=== PATIENT | male | born 1970 | race Caucasian/White ===

== ENCOUNTER 2021-05-06 04:54 | Inpatient (IN) | payer OTHER, SELFPAY ==
[2021-05-06 04:54] VITALS: BP 143/97; PULSE 98; RESP 16; TEMP 37.1; O2SAT 96; BMI 25.8
--- NOTE | 2021-05-06 05:50 | EKG12_ITS ---
Test Reason : DETOX Blood Pressure : / mmHG Vent. Rate : 074 BPM Atrial Rate : 074 BPM P-R Int : 176 ms QRS Dur : 086 ms QT Int : 380 ms P-R-T Axes : 053 -05 -11 degrees QTc Int : 421 ms Normal sinus rhythm Normal ECG Confirmed by RENAE VITALE, ITALIA ([id number]), editor publications SONIA GREY ([id number]) on 05/10/2021 9:50:05 AM Referred By: KONRAD Confirmed By:DICK MACDONALD MD
[2021-05-06] MEDS: 0.9% Normal Saline 1,000 ML 999 ML IV (06:08)
[2021-05-06] MEDS: Ondansetron 4 MG/2 ML Vial IV (06:08)
[2021-05-06 06:21] LABS: Absolute Lymphocyte Count 1.63 X10^3/uL (0.83-4.51); Absolute Neutrophil Count 2.3 X10^3/uL (2.0-7.7); Basophil# 0.03 X10^3/uL; Basophil% 0.6 % (0-1); Eosinophil# 0.24 X10^3/uL; Eosinophils% 4.9 % (0-5); Hematocrit 47.2 % (40-54); Hemoglobin 16.3 g/dL (13.0-16.5); Lymphocyte # 1.63 X10^3/ul (0.83-4.51); Lymphocyte % 33.5 % (19-41); Mean Corp Hgb Conc 34.5 g/dL (32-36); Mean Corpuscular Volume 95.5 fL (80-94); Mean Platelet Vol. 10.4 fl (6.2-12.0); Monocyte% 12.3 % (0-10); NRBC Flagged by Analyzer 0 % (0-5); Neutrophil # 2.34 X10^3/uL (2.7-7.7); Neutrophil % 48.3 % (47-70); Platelet Count 217 K/mm3 (150-450); RBC Distribution Width CV 13.3 % (11.6-14.6); RBC Distribution Width SD 47.5 fl (35.1-43.9); Red Blood Count 4.94 M/mm3 (4.6-6.2); White Blood Count 4.9 K/mm3 (4.4-11.0)
[2021-05-06 06:35] LABS: AST(SGOT) 66 U/L (15-37); Alanine Aminotransfer ALT/SGPT 76 U/L (16-61); Albumin, Serum 3.9 g/dL (3.2-5.0); Alkaline Phosphatase 85 U/L (45-117); Anion Gap 8 (5-15); BUN 13 mg/dL (7-18); BUN/Creat Ratio 14.9 RATIO (10-20); Bilirubin, Direct 0.12 mg/dL (0.00-0.30); Calcium,Total 9.1 mg/dL (8.5-10.1); Chloride 103 mmol/L (98-107); Creatinine, Serum 0.87 mg/dL (0.70-1.30); EST Glomerular Filtration Rate 97 mL/min (>60); Est Glom Filt Rate - Afr Amer 118 mL/min (>60); Estimated Creatinine Clearance 96.09 ml/min; Globulin 4.4 g/dL (2.2-4.2); Glucose 101 mg/dL (74-106); Magnesium 2.2 mg/dL (1.6-2.6); Protein, Total 8.3 g/dL (6.4-8.2); Sodium Level 140 mmol/L (136-145)
[2021-05-06 07:41] VITALS: BP 120/96; PULSE 75; O2SAT 95
--- NOTE | 2021-05-06 07:47 | EDS_ITS ---
HPI History of Present Illness Chief Complaint: Substance Abuse Narrative Narrative: Patient is a 50-year-old male who presents with concern for alcohol detox. He states that he drinks daily and has done so for 20 to 30 years. He states he did go through detox program approximately 20 years ago when he was 28 years old and was sober for about 1 year. He states otherwise he wakes up and has Jorge?a and his coffee. He states he can make it through about 8 hours or work but he returns to his car and has a bottle where he drinks liquor. He states he then returns home and does more shots and drinks more from a bottle and he states he does this typically 7 days a week and can be more severe on the weekends as he does not have to go to work. He states he is not recognizing that he is drinking too much and this is a problem and therefore comes to the hospital for evaluation with hopes of getting into the alcohol detox program [facility] Medical History Alcohol abuse Home Medications NK 05/06/21 [History Last Taken Unknown] Allergy/AdvReac Type Severity Reaction Status Date / Time No Known Allergies Allergy Verified 05/06/21 04:56 Social History Smoking Status: Current every day smoker tobacco type: cigarettes ROS ROS ED Constitutional Constitutional ED: Denies chills or fever(s) ENT ENT ED: Denies sore throat Cardiovascular Cardiovascular: Denies chest pain Respiratory/Chest Respiratory/Chest: Denies cough or dyspnea Gastrointestinal Gastrointestinal: Reports nausea and vomiting; Denies abdominal pain or diarrhea Genitourinary Genitourinary ED: Denies dysuria Musculoskeletal Musculoskeletal: Denies myalgias Integumentary Denies rash Neurologic Neurologic: Denies headache(s) Psychiatric Psychiatric: Denies suicidal ideation or suicidal thoughts Hematologic/Lymphatic Hematologic/Lymphatic: Denies easy bleeding or easy bruising EXAM Physical Exam Const Vital Signs: 05/06/21 04:54 05/06/21 07:41 Temperature 98.7 F Temperature Source Oral Pulse Rate 98 75 Respiratory Rate 16 Blood Pressure 143/97 H 120/96 H Blood Pressure Mean 112 104 Pulse Ox 96 95 Oxygen Delivery Method Room Air Room Air Positive well nourished and well developed General Appearance ED: well developed HEENT Reports dry mucous membranes Mouth ED: Yes dry mucous membranes Mouth: dry mucous membranes Eyes PERRL and EOMs intact bilaterally General Eye ED: Negative for scleral icterus Neck supple Resp normal respiratory effort and clear to auscultation bilaterally Cardio regular rate and regular rhythm GI normal to inspection, nondistended, normoactive bowel sounds, non-tender, non- distended and no masses Auscultation: normoactive bowel sounds Palpation: soft Extremity normal to inspection Neuro oriented x3 and CN's II-XII intact bilaterally Sensorium / Orientation: alert Motor Exam: strength 5/5 throughout Psych mental status grossly normal Skin no rashes or lesions noted General Skin Exam: Negative for jaundice MDM MDM MDM Narrative Medical decision making narrative: Patient presented to the ER stable vitals and in no acute distress. He did report he was drinking this morning and therefore elected to check values and not start with treatment such as Ativan or phenobarbital. His alcohol level is elevated at 185 consistent with his history. He has no signs of alcoholic encephalopathy or obvious cirrhosis at th is time. However based on the amount he drinks he is high risk for going through delirium tremens through his withdrawal stage and therefore will be admitted to the hospital to safely transition off of alcohol Lab Data Attestation: I reviewed the patient's lab results. Labs: Laboratory Results - last 24 hr 05/06/21 05/06/21 05/06/21 06:10 06:10 06:10 WBC 4.9 RBC 4.94 Hgb 16.3 Hct 47.2 MCV 95.5 H MCH 33.0 H MCHC 34.5 RDW Std Deviation 47.5 H RDW Coeff of Bashir 13.3 Plt Count 217 MPV 10.4 Immature Gran % (Auto) 0.400 Neut % (Auto) 48.3 Lymph % (Auto) 33.5 [place] % (Auto) 12.3 H Eos % (Auto) 4.9 Baso % (Auto) 0.6 Absolute Neuts (auto) 2.3 Absolute Lymphs (auto) 1.63 Nucleated RBC % 0 Sodium 140 Potassium 4.0 Chloride 103 Carbon Dioxide 29.0 Anion Gap 8 BUN 13 Creatinine 0.87 Estim Creat Clear Calc 96.09 Est GFR (MDRD) Af Amer 118 Est GFR (MDRD) Non-Af 97 BUN/Creatinine Ratio 14.9 Glucose 101 Calcium 9.1 Magnesium 2.2 Total Bilirubin 0.20 Direct Bilirubin 0.12 AST 66 H ALT 76 H Alkaline Phosphatase 85 Total Protein 8.3 H Albumin 3.9 Globulin 4.4 H Ethyl Alcohol 185.0 Discharge Plan Triage Chief Complaint: Substance Abuse Other Complaint: ETOH Intox ED Provider: Kodak Bray Dx/Rx/DC Orders Clinical Impression: Alcohol abuse Prescriptions: No Action NK RF: 0 Primary Care Provider: Care Physician,No Primary Referrals: Care Physician,No Primary [Primary Care Provider] - Disposition Disposition: Acute Care [facility]
--- NOTE | 2021-05-06 07:56 | PCM.HP.STD ---
HPI - General General Date of Admission: 05/06/21 Date of Service: 05/06/21 Chief Complaint: alcohol withdrawal HPI Narrative MILLIE KELLY, is a 50 M who presents seeking treatment for alcohol withdrawal. Patient drinks daily. Drinks around 5-10 shots per day during the week bottle of bourbon over the weekend. He is able to go to work for 8 hours but feels stressed time. Patient presents voluntarily seeking treatment for alcohol withdrawal. Patient's last drink was this morning. Is currently having no symptoms but states that typically in the mornings he has some jitteriness that is resolved after his first drink. [facility] Medical History Alcohol abuse Alcohol abuse Home Medications NK 05/06/21 [History Last Taken Unknown] Allergy/AdvReac Type Severity Reaction Status Date / Time No Known Allergies Allergy Verified 05/06/21 04:56 Social History (Updated 05/06/21 @ 07:[address] Jose Bansal, DO) Smoking Status: Current every day smoker tobacco type: cigarettes alcohol intake: current alcohol intake frequency: 3 or more drinks per day Alcohol type: hard liquor substance use type: does not use ROS ROS Narrative All review of systems were negative except as mentioned above in the history of present illness and the other review of systems. Vital Signs Vital Signs Vital Signs: 05/06/21 04:54 05/06/21 07:41 Temperature 37.1 C Temperature Source Oral Pulse Rate 98 75 Respiratory Rate 16 Blood Pressure 143/97 H 120/96 H Blood Pressure Mean 112 104 Pulse Ox 96 95 Oxygen Delivery Method Room Air Room Air Weight Weight: 77.111 kg Body Mass Index (BMI) 25.8 Physical Exam Const alert, no apparent distress and average body habitus General Appearance: cooperative HEENT normocephalic, head/scalp atraumatic, hearing grossly normal bilaterally and moist oral mucous membranes Eyes PERRL Resp normal respiratory effort, no retractions, no use of accessory muscles and clear to auscultation bilaterally Cardio regular rate, regular rhythm, S1 normal heart sound and S2 normal heart sound GI normal to inspection, nondistended, normoactive bowel sounds, non-tender, non-distended and hepatosplenomegaly Extremity normal to inspection Skin no rashes or lesions noted Results Lab / Micro Data Attestation: I reviewed the patient's lab results. Result Diagrams: 05/06/21 06:10 05/06/21 06:10 Labs: Laboratory Results - last 24 hr 05/06/21 06:10: WBC 4.9, RBC 4.94, Hgb 16.3, Hct 47.2, MCV 95.5 H, MCH 33.0 H, MCHC 34.5, RDW Std Deviation 47.5 H, RDW Coeff of Bashir 13.3, Plt Count 217, MPV 10.4, Immature Gran % (Auto) 0.400, Neut % (Auto) 48.3, Lymph % (Auto) 33.5, [place] % (Auto) 12.3 H, Eos % (Auto) 4.9, Baso % (Auto) 0.6, Absolute Neuts (auto) 2.3, Absolute Lymphs (auto) 1.63, Nucleated RBC % 0 05/06/21 06:10: Sodium 140, Potassium 4.0, Chloride 103, Carbon Dioxide 29.0, Anion Gap 8, BUN 13, Creatinine 0.87, Estim Creat Clear Calc 96.09, Est GFR (MDRD) Af Amer 118, Est GFR (MDRD) Non-Af 97, BUN/Creatinine Ratio 14.9, Glucose 101, Calcium 9.1, Magnesium 2.2, Total Bilirubin 0.20, Direct Bilirubin 0.12, AST 66 H, ALT 76 H, Alkaline Phosphatase 85, Total Protein 8.3 H, Albumin 3.9, Globulin 4.4 H 05/06/21 06:10: Ethyl Alcohol 185.0 Assessment & Plan Assessment/Plan (1) Alcohol abuse: PLAN: 1. Acute alcohol withdrawal Last drink was this morning Discussed with patient that he barbital taper. Additionally patient will be on thiamine folate. I do not feel the patient is going to progress to the point of delirium tremens and I think his course would be rather uncomplicated and possibly may be shortened. Would anticipate probably around 2days. Did inform him that he would be seeing addiction medicine to facilitate some programs for him. States that he does have some connections prior to this but told him to talk with them to see what ultimately would be ideal choice for him moving forward. 2. Tobacco abuse Smokes a pack a day Nicotine patch 3. VTE prophylaxis: Not indicated risk. 4. COVID-19 vaccination status: Patient has had the [employer] Wagner vaccine. Did offer the patient the opportunity to receive a booster shot which he said he would be interested in receiving is here. Patient is also contracted Covid previously positive on home test. Not currently infected with COVID-19. Charges/Coding Visit Charges Inpatient E&M: 88795 Init Hosp L2
[2021-05-06 08:15] VITALS: BP 112/79; PULSE 81; RESP 22; TEMP 36.7; O2SAT 97; BMI 26.9
[2021-05-06 08:18] VITALS: BP 127/104; PULSE 76; RESP 18; TEMP 36.6; O2SAT 96
[2021-05-06] MEDS: Thiamine Hydrochloride 100 MG Tablet PO (10:31)
[2021-05-06] MEDS: Phenobarbital 32.4 MG Tablet 64.8 MG PO ×4 (10:31→20:08)
[2021-05-06] MEDS: Folic Acid 1 MG Tablet PO (10:31)
--- NOTE | 2021-05-06 10:33 | CASEMGMT ---
Social Work Alise, Addiction Therapist notified of pt admission to [facility] program for alcohol withdrawal. GERMAIN Wills
[2021-05-06 11:25] LABS: Amphetamine Urine VISTA NEGATIVE (<1000 ng/mL); Barbiturate Urine VISTA NEGATIVE (< 200 ng/mL); Benzodiazepine Urine VISTA NEGATIVE (< 200 ng/mL); Cocaine Urine VISTA NEGATIVE (< 300 ng/mL); Ecstacy Urine VISTA NEGATIVE (< 500 ng/mL); Methadone Urine VISTA NEGATIVE (< 300 ng/mL); PCP Urine VISTA NEGATIVE (< 25 ng/mL); THC Urine VISTA POSITIVE (< 50 ng/mL); Vista UDS pH Range 5
[2021-05-06] MEDS: hydrOXYzine PAM 25 MG Capsule 50 MG PO (13:59)
[2021-05-06 14:00] VITALS: BP 136/96; PULSE 87; RESP 17; TEMP 36.7; O2SAT 94
--- NOTE | 2021-05-06 14:33 | ADDICTION ---
This press writer met with PT to conduct ASAM, MSE, AUDIT assessments and to plan for d/c. PT A+Ox4 and participated actively. All assessments completed and placed in PT's chart. PT plans to f/u with [facility] for follow-up treatment services. PT did not indicate a need for transportation post d/c from [facility].
[2021-05-06] MEDS: Ibuprofen 600 MG Tablet PO (17:00)
[2021-05-06 20:11] VITALS: BP 152/91; PULSE 86; RESP 16; TEMP 36.6; O2SAT 97
[2021-05-07] MEDS: Phenobarbital 32.4 MG Tablet 64.8 MG PO ×6 (00:52→20:46)
[2021-05-07 02:11] VITALS: BP 120/96; PULSE 63; RESP 16; TEMP 36.6; O2SAT 98
[2021-05-07] MEDS: Folic Acid 1 MG Tablet PO (09:13)
[2021-05-07] MEDS: Thiamine Hydrochloride 100 MG Tablet PO (09:13)
[2021-05-07 09:19] VITALS: BP 139/87; PULSE 61; RESP 18; TEMP 36.4; O2SAT 98
--- NOTE | 2021-05-07 13:07 | PCM.PN.HOSP ---
Subjective Subjective Feels well. Tired. Objective Data Objective Data Vital Signs: Vital Signs Temp Pulse Resp BP Pulse Ox 36.4 C L 61 18 139/87 H 98 05/07/21 09:19 05/07/21 09:19 05/07/21 09:19 05/07/21 09:19 05/07/21 09:19 Oxygen Delivery Method Room Air Weight: 80.195 kg Body Mass Index (BMI) 26.9 Intake & Output: Intake and Output for Last 24 Hours 05/05/21 05/06/21 05/07/21 23:59 23:59 23:59 Intake Total 1301.2 / 1701.2 1250 / 1250 Balance 1301.2 / 1701.2 1250 / 1250 Lab / Micro Data Result Diagrams: 05/06/21 06:10 05/06/21 06:10 Physical Exam Const alert and no apparent distress HEENT head/scalp atraumatic Head and Scalp: normocephalic Psych affect normal Assessment & Plan Assessment/Plan (1) Alcohol abuse: PLAN: 1. Acute alcohol withdrawal Last drink was this morning Discussed with patient that he barbital taper. Additionally patient will be on thiamine folate. I do not feel the patient is going to progress to the point of delirium tremens and I think his course would be rather uncomplicated and possibly may be shortened. Would anticipate probably around 2days. Did inform him that he would be seeing addiction medicine to facilitate some programs for him. States that he does have some connections prior to this but told him to talk with them to see what ultimately would be ideal choice for him moving forward. 2. Tobacco abuse Smokes a pack a day Nicotine patch 3. VTE prophylaxis: Not indicated risk. 4. COVID-19 vaccination status: Patient has had the Wagner [employer] Wagner vaccine. Pt received booster COVID 19 shot 05/07. Charges/Coding Visit Charges Inpatient E&M: 67835 Subs Hosp L1
[2021-05-07 14:30] VITALS: BP 131/98; PULSE 74; RESP 18; TEMP 36.7; O2SAT 96
[2021-05-07] MEDS: hydrOXYzine PAM 25 MG Capsule 50 MG PO (17:38)
[2021-05-07 17:40] VITALS: BP 152/99; PULSE 66; RESP 18; TEMP 36.6; O2SAT 99
[2021-05-07 20:44] VITALS: BP 141/89; PULSE 68; RESP 18; TEMP 36.7; O2SAT 97
[2021-05-07] MEDS: traZODone 100 MG Tablet PO (20:48)
[2021-05-08] MEDS: Phenobarbital 32.4 MG Tablet 64.8 MG PO ×6 (01:03→22:14)
[2021-05-08 02:00] VITALS: BP 132/94; PULSE 69; RESP 16; TEMP 36.9; O2SAT 96
[2021-05-08 08:30] VITALS: BP 149/95; PULSE 76; RESP 16; TEMP 36.6; O2SAT 99
[2021-05-08] MEDS: Thiamine Hydrochloride 100 MG Tablet PO (08:54)
[2021-05-08] MEDS: Folic Acid 1 MG Tablet PO (08:54)
[2021-05-08] MEDS: Acetaminophen 500 MG Tablet PO (08:56)
--- NOTE | 2021-05-08 13:11 | PCM.PN.HOSP ---
Subjective Subjective Feels better today. Eating. Still feeling tired. No tremulousness. Objective Data Objective Data Vital Signs: Vital Signs Temp Pulse Resp BP Pulse Ox 36.6 C 76 16 149/95 H 99 05/08/21 08:30 05/08/21 08:30 05/08/21 08:30 05/08/21 08:30 05/08/21 08:30 Oxygen Delivery Method Room Air Weight: 80.195 kg Body Mass Index (BMI) 26.9 Intake & Output: Intake and Output for Last 24 Hours 05/06/21 05/07/21 05/08/21 23:59 23:59 23:59 Intake Total 1301.2 / 1701.2 1700 / 2200 1700 / 1700 Balance 1301.2 / 1701.2 1700 / 2200 1700 / 1700 Lab / Micro Data Result Diagrams: 05/06/21 06:10 05/06/21 06:10 Physical Exam Const alert and no apparent distress Psych affect normal Mood & Affect: depressed Assessment & Plan Assessment/Plan (1) Alcohol abuse: PLAN: 1. Acute alcohol withdrawal Last drink was this morning Discussed with patient that he barbital taper. Additionally patient will be on thiamine folate. I do not feel the patient is going to progress to the point of delirium tremens and I think his course would be rather uncomplicated and possibly may be shortened. Would anticipate probably around 2days. Did inform him that he would be seeing addiction medicine to facilitate some programs for him. States that he does have some connections prior to this but told him to talk with them to see what ultimately would be ideal choice for him moving forward. Per addiction medicine notes on the : PT plans to f/u with [facility] for follow-up treatment services. PT did not indicate a need for transportation post d/c from [facility]. 2. Tobacco abuse Smokes a pack a day Nicotine patch 3. VTE prophylaxis: Not indicated risk. 4. COVID-19 vaccination status: Patient has had the Wagner [employer] Wagner vaccine. Pt received booster COVID 19 shot 05/07. 5. Disposition: Anticipate patient be able to go home on the . Patient feeling tired today which could be the alcohol withdrawal, phenobarbital but also the fact that he received's COVID-19 booster and influenza vaccine, too. Charges/Coding Visit Charges Inpatient E&M: 90294 Subs Hosp L1
[2021-05-08 16:27] VITALS: BP 128/85; PULSE 86; RESP 16; TEMP 36.8; O2SAT 96
[2021-05-08 21:05] VITALS: BP 147/102; PULSE 77; RESP 18; TEMP 36.7; O2SAT 95
[2021-05-08] MEDS: hydrOXYzine PAM 25 MG Capsule 50 MG PO (21:21)
[2021-05-08] MEDS: traZODone 100 MG Tablet PO (22:14)
[2021-05-09 02:59] VITALS: BP 127/91; PULSE 79; RESP 18; TEMP 36.4; O2SAT 97
[2021-05-09] MEDS: hydrOXYzine PAM 25 MG Capsule 50 MG PO (03:07)
[2021-05-09] MEDS: Phenobarbital 32.4 MG Tablet 64.8 MG PO (04:53)
[2021-05-09 07:42] VITALS: BP 121/96; PULSE 87; RESP 16; TEMP 36.4; O2SAT 97
[2021-05-09] MEDS: Folic Acid 1 MG Tablet PO (08:38)
[2021-05-09] MEDS: Thiamine Hydrochloride 100 MG Tablet PO (08:38)
--- NOTE | 2021-05-09 09:54 | DS.PCM_ITS ---
Providers Date of Admission: 05/06/21 Primary Care Physician: No Primary Care Phys Reason For Visit: ALCOHOL WD Diagnosis Discharge Diagnosis (1) Alcohol abuse: Status: Acute Code(s): F10.10 - Alcohol abuse, uncomplicated Medications at Discharge Home Medications NK 05/06/21 Hospital Course Operations None Procedures None Summary of Care Provided Minutes Spent on Discharge: 45 Hospital Course: Patient is a 1-year-old male with a past medical history as outlined was admitted through the ED on 05/06/2021 for acute alcohol withdrawal. Patient drank about 5-10 shots per day during the week and also drank a bottle of bourbon over the weekend. His last drink was the morning of admission. He was admitted to manage for acute alcohol withdrawal. He was started on alcohol withdrawal protocol with phenobarbital. He tolerated the 3 day detox process well. He remained stable and was discharged home on 05/09/2021. He is to follow up with his PCP in 1-2 weeks and also to follow up with [facility] on outpatient basis. Patient seen and examined prior to discharge. He had no active complaints and had an uneventful night. REview of systems is otherwise negative. Labs and vitals reviewed. Home meds reviewed and reconciled. Physical Exam Const alert, oriented x3 and no apparent distress General Appearance: cooperative, comfortable and well kempt Orientation / Consciousness: awake, oriented to person, oriented to place and oriented to time Exam Limitations: no limitations HEENT normocephalic, head/scalp atraumatic, hearing grossly normal bilaterally and moist oral mucous membranes Eyes PERRL, EOMs intact bilaterally and conjunctivae normal Neck no lymphadenopathy, supple and no JVD Resp normal respiratory effort, no retractions, no use of accessory muscles and clear to auscultation bilaterally Cardio regular rate, regular rhythm, S1 normal heart sound, S2 normal heart sound and no murmurs GI normal to inspection, nondistended, normoactive bowel sounds, soft to palpation, non-tender and non-distended Extremity normal to inspection, full ROM and no clubbing, cyanosis or edema Skin no rashes or lesions noted Neuro oriented x3, CN's II-XII intact bilaterally and moves all extremities Sensorium / Orientation: awake and alert Psych affect normal Weight / BMI Weight Weight: 176 lb 12.8 oz Body Mass Index (BMI) 26.9 ABG / Lab / Microbiology Data Result Diagrams: 05/06/21 06:10 05/06/21 06:10 D/C Instructions Discharge Diet: No restrictions Discharge Activity: Return to Normal Activity Weight Bearing Status: Weight bearing as tolerated Call your doctor if you observe: Fever of 101 or Higher, Shortness of breath and Swelling in the ankles Meaningful Use Info Meaningful Use Diagnoses (Choose all that apply): None applicable Discharge Plan Admission Admit Date/Time: 05/06/21 07:54 Primary Reason for Your Visit: acute alcohol withdrawal Attending Provider: Bridget Soto Primary Care Provider: Care Physician,No Primary Discharge Orders/Prescriptions Prescriptions: No Action NK RF: 0 Referrals / Follow Up: Care Physician,No Primary [Primary Care Provider] - Disposition Disposition (needs filled in before D/C Order can be placed): Home, Self Care Charges/Coding Visit Charges Inpatient E&M: 05407 Disch Hosp
== END 2021-05-09 11:33 | disposition home or self-care (01) | DRG 897 ==
LOC: ED 07:52 → MS3 08:00
PROVIDERS: Emergency Provider Emergency Medicine; Visit Provider Student in an Organized Health Care Education/Training Program
DX: F10.230 Alcohol dependence with withdrawal, uncomplicated (principal); F17.210 Nicotine dependence, cigarettes, uncomplicated; Z86.16 Personal history of COVID-19; Z23 Encounter for immunization; Y90.6 Blood alcohol level of 120-199 mg/100 ml
CPT/HCPCS: 0064A; 80048; 80076; 80307; 82077; 83735; 85025; 91306; 93005; 99283; J7030; 90686; A4216; J2405; J3490

== ENCOUNTER 2023-12-15 15:16 | Inpatient (IN) | payer MEDICAID, SELFPAY ==
[2023-12-15] VITALS (8 sets, daily range): BP systolic 109–137; BP diastolic 74–102; PULSE 74–112; RESP 14–18; TEMP 36.3–36.8; O2SAT 92–98; BMI 24.1; BMI 22.6
[2023-12-15 16:12] LABS: Absolute Lymphocyte Count 1.49 X10^3/uL (0.83-4.51); Absolute Neutrophil Count 1.7 X10^3/uL (2.0-7.7); Basophil# 0.04 X10^3/uL; Eosinophil# 0.09 X10^3/uL; Eosinophils% 2.3 % (0-5); Hematocrit 42.7 % (40-54); Hemoglobin 14.8 g/dL (13.0-16.5); Lymphocyte # 1.49 X10^3/ul (0.83-4.51); Lymphocyte % 38.1 % (19-41); Mean Corp Hgb Conc 34.7 g/dL (32-36); Mean Corpuscular Hgb 34.9 pg (27.0-32.0); Mean Corpuscular Volume 100.7 fL (80-94); Mean Platelet Vol. 10.4 fl (6.2-12.0); Monocyte# 0.57 X10^3/uL; Monocyte% 14.6 % (0-10); NRBC Flagged by Analyzer 0 % (0-5); Neutrophil # 1.72 X10^3/uL (2.7-7.7); Platelet Count 160 K/mm3 (150-450); RBC Distribution Width CV 13.1 % (11.6-14.6); RBC Distribution Width SD 48.8 fl (35.1-43.9); Red Blood Count 4.24 M/mm3 (4.6-6.2); White Blood Count 3.9 K/mm3 (4.4-11.0)
[2023-12-15 16:23] LABS: Anion Gap 9 (5-15); BUN 6 mg/dL (7-18); BUN/Creat Ratio 9.8 RATIO (10-20); Calcium,Total 8.5 mg/dL (8.5-10.1); Chloride 107 mmol/L (98-107); Creatinine, Serum 0.61 mg/dL (0.70-1.30); EST Glomerular Filtration Rate 146 mL/min (>60); Est Glom Filt Rate - Afr Amer 176 mL/min (>60); Estimated Creatinine Clearance 132.38 ml/min; Glucose 103 mg/dL (74-106); Potassium 3.5 mmol/L (3.5-5.1); Sodium Level 142 mmol/L (136-145)
--- NOTE | 2023-12-15 16:57 | EX.ED.DYSGE1 ---
HPI History of Present Illness Chief Complaint: ETOH Intox Narrative Narrative: Patient is a 53-year-old male with past medical history of alcohol abuse who drinks approximately 10 cans of beer a day as well as a pint of whiskey who presents to the emerged part with a chief complaint of wanting alcohol detox. Patient states that her last drink was around 3 PM this afternoon. He states that he has never had seizures or went through withdrawal in the past. He states that he tried to quit on his own for a very short period of time and began drinking again when he was not feeling well. Patient states that he usually very shaky and does not feel well by morning. Patient denies any other medical problems states that he does not follow with a doctor regular basis. Denies any blood thinner medications. PFSH [facility] Medical History Smoker Alcohol abuse Alcohol abuse Home Medications ?Medication ?Instructions ?Recorded ?Last Taken ?Type NK 05/06/21 Unknown History Allergy/AdvReac Type Severity Reaction Status Date / Time No Known Allergies Allergy Verified 12/15/23 15:16 Social History household members: other Smoking Status: Current every day smoker tobacco type: cigarettes alcohol intake: current alcohol intake frequency: 3 or more drinks per day Alcohol type: hard liquor substance use type: does not use ROS ROS ED ROS Narrative Constitutional: Denies any headaches, lightness, dizziness, fevers, chills Eyes: Denies change in vision double vision blurry vision Cardiovascular: Denies chest pain palpitations Respiratory: Denies coughing wheezing shortness of breath Abdomen: Denies nausea vomit diarrhea : Denies urinary symptoms Neurological: Denies numbness, weakness, tingling Musculoskeletal: Denies back pain Skin: Denies rashes or lesions EXAM Physical Exam Narrative Exam Narrative: General: Patient was lying in bed rest comfortably did not appear to be acute distress Head: Atraumatic, normocephalic Eyes: PERRL bilateral, EOMI bilateral, no conjunctival injection noted Neck: Soft, supple, trachea midline Cardiovascular: Regular rate and rhythm no murmurs gallops rubs noted Respiratory: Clear to auscultation bilaterally no rales rhonchi or wheeze noted Abdomen: Soft, nondistended, nontender to palpation Extremities: +5/5 strength noted in the bilateral lower extremities Neurological: Patient follow commands knew that he was at [facility] years 2023 Skin: Warm, dry, intact Const Vital Signs: 12/15/23 15:16 12/15/23 15:17 12/15/23 16:16 Temperature 98.3 F 98.1 F Temperature Source Oral Temporal Pulse Rate 88 112 H 101 H Respiratory Rate 18 18 16 Blood Pressure 123/92 H 127/97 H 127/89 H Blood Pressure Mean 102 107 101 Blood Pressure Source Monitor Blood Pressure Position Semi-Fowlers Blood Pressure Location Right Arm Pulse Ox 92 98 97 Oxygen Delivery Method Room Air Room Air MDM MDM MDM Narrative Medical decision making narrative: Patient is a 53-year-old male who presents to the emergency department chief complaint of alcohol detoxification. Patient will have a workup here and then be admitted to the hospital. Patient's CBC revealed a white blood count of 3.9 hemoglobin was 14.8 he does have a macrocytic anemia with MCV of 100.7. Patient's platelet count normal at 160. Patient sodium 142, potassium normal 3.5, creatinine was 0.61. Patient's hepatic function panel pending and as well as drug screen. Patient's alcohol level was noted to be 411. Called and discussed case with hospitalist Dr. Gaona who accept patient for admission. We will admit the patient to the intensive care unit as he has high chance that he goes through alcohol withdrawal even delirium tremens and Warnicke encephalopathy. Patient will be given phenobarbital here as well as high-dose thiamine 500 mg and folic acid 1 mg. Patient was notified he is agreeable to plan all question concerns answered. Lab Data Labs: Laboratory Results - last 24 hr 12/15/23 12/15/23 16:00 16:37 WBC 3.9 L RBC 4.24 L Hgb 14.8 Hct 42.7 MCV 100.7 H MCH 34.9 H MCHC 34.7 RDW Std Deviation 48.8 H RDW Coeff of Bashir 13.1 Plt Count 160 MPV 10.4 Immature Gran % (Auto) 0.000 Neut % (Auto) 44.0 L Lymph % (Auto) 38.1 [place] % (Auto) 14.6 H Eos % (Auto) 2.3 Baso % (Auto) 1.0 Absolute Neuts (auto) 1.7 L Absolute Lymphs (auto) 1.49 Nucleated RBC % 0 Sodium 142 Potassium 3.5 Chloride 107 Carbon Dioxide 26.0 Anion Gap 9 BUN 6 L Creatinine 0.61 L Estim Creat Clear Calc 132.38 Est GFR (MDRD) Af Amer 176 Est GFR (MDRD) Non-Af 146 BUN/Creatinine Ratio 9.8 L Glucose 103 Calcium 8.5 Ur Drug Screen Comment Ethyl Alcohol 411.0 H* Discharge Plan Triage Chief Complaint: ETOH Intox ED Provider: Helio Carney Dx/Rx/DC Orders Clinical Impression: Alcohol abuse Prescriptions: No Action NK Primary Care Provider: Care Physician,No Primary Referrals: Care Physician,No Primary [Primary Care Provider] - Print Language: [place]ian
[2023-12-15] MEDS: Phenobarbital Sodium 130 MG/ML Vial 240 MG IV (17:10)
[2023-12-15 17:14] LABS: AST(SGOT) 82 U/L (15-37); Alanine Aminotransfer ALT/SGPT 86 U/L (16-61); Albumin, Serum 3.9 g/dL (3.2-5.0); Alkaline Phosphatase 69 U/L (45-117); Bilirubin, Direct 0.14 mg/dL (0.00-0.30); Globulin 3.9 g/dL (2.2-4.2); Protein, Total 7.8 g/dL (6.4-8.2)
[2023-12-15] MEDS: Thiamine Hydrochloride 500 MG in 0.9% Normal Saline (50mL Bag) 50 ML 200 MG IV (17:22)
[2023-12-15] MEDS: Folic Acid 1 MG in 0.9% Normal Saline (50mL Bag) 50 ML 200 MG IV (17:41)
--- NOTE | 2023-12-15 18:32 | HP.PCM.HOS_ITS ---
HPI - General General Date of Admission: 12/15/23 Date of Service: 12/15/23 Chief Complaint: ETOH detox HPI Narrative MILLIE KELLY, is a 53-year-old male with history of alcohol and tobacco use who presented to [facility] ED 12/15/2023 for alcohol detox. Patient reportedly drinks 12 to 18 cans of beer a day and a pint of whiskey. CIWA assessment upon arrival to the ED showed a CIWA of 9. Reportedly patient's last drink was earlier today and it was a shot of whiskey. In the ED pts labs fairly unremarkable, was mildly tachycardic but normotensive. Hospitalist contacted for admission for ETOH detox. Patient evaluated at bedside with girlfriend present. Patient reports he drinks over a pint of whiskey daily and about 6 beers that were 16 ounces each daily sometimes more, since he woke up at 9 AM he has had 2 beers and a shot with his last alcohol use at 3 PM. Patient reports that he drinks from the morning until he goes to bed. When he wakes up in the morning he feels shaky and sick to his stomach. At present he has received phenobarbital and is not presently having any shakes, no present nausea or vomiting, no current complaints other than wanting a cigarette and a beer. Reports he smokes a pack per day and uses marijuana but denies any other substance use [facility] Medical History Smoker Alcohol abuse Alcohol abuse Home Medications ?Medication ?Instructions ?Recorded ?Last Taken ?Type NK 05/06/21 Unknown History Allergy/AdvReac Type Severity Reaction Status Date / Time No Known Allergies Allergy Verified 12/15/23 15:16 Social History household members: other Smoking Status: Current every day smoker tobacco type: cigarettes alcohol intake: current alcohol intake frequency: 3 or more drinks per day Alcohol type: hard liquor substance use type: does not use ROS ROS Narrative General: Denies fever/chills HENT: Denies headache, denies stuffy nose, denies sore throat EYES: Denies changes in vision Resp: Chronic morning cough, denies shortness of breath Cardiac: Denies chest pain GI: Denies abdominal pain, has had some straining with bowel movements and some blood when he wipes, gets some nausea and dry heaves at times : Denies changes in urination Extremity: Denies swelling MSK: Denies weakness Neuro: Denies any numbness/tingling, gets tremors Heme: Denies any bleeding or bruising Skin: Denies rashes Psychiatric: No complaints voiced Vital Signs Vital Signs Vital Signs: 12/15/23 15:16 12/15/23 15:17 12/15/23 16:16 Temperature 98.3 F 98.1 F Temperature Source Oral Temporal Pulse Rate 88 112 H 101 H Respiratory Rate 18 18 16 Blood Pressure 123/92 H 127/97 H 127/89 H Blood Pressure Mean 102 107 101 Blood Pressure Source Monitor Blood Pressure Position Semi-Fowlers Blood Pressure Location Right Arm Pulse Ox 92 98 97 Oxygen Delivery Method Room Air Room Air 12/15/23 16:56 12/15/23 17:00 12/15/23 18:00 Temperature 97.4 F L Temperature Source Pulse Rate 101 H 78 87 Respiratory Rate 16 17 17 Blood Pressure 127/89 H 109/74 137/93 H Blood Pressure Mean 101 85 107 Blood Pressure Source Blood Pressure Position Blood Pressure Location Pulse Ox 97 98 97 Oxygen Delivery Method Room Air Room Air Weight Weight: 72.121 kg Body Mass Index (BMI) 24.1 Physical Exam Narrative General: Alert, oriented, no apparent distress, patient not swelling HEENT: Atraumatic, normocephalic Eyes: Anicteric, normal conjunctiva, extraocular movements grossly intact Neck: Supple Respiratory: Clear to auscultation bilaterally, normal respiratory effort Cardiovascular: Regular rate and rhythm GI: Soft, nontender, nondistended Extremities: No edema Musculoskeletal: Moving all extremities Neuro: No overt focal neurological deficits, no tremors in outstretched hands Skin: No rashes appreciated Psych: Cooperative Results Lab / Micro Data 12/15/23 16:00 12/15/23 16:00 Labs: Laboratory Results - last 24 hr 12/15/23 16:00: WBC 3.9 L, RBC 4.24 L, Hgb 14.8, Hct 42.7, MCV 100.7 H, MCH 34.9 H, MCHC 34.7, RDW Std Deviation 48.8 H, RDW Coeff of Bashir 13.1, Plt Count 160, MPV 10.4, Immature Gran % (Auto) 0.000, Neut % (Auto) 44.0 L, Lymph % (Auto) 38.1, [place] % (Auto) 14.6 H, Eos % (Auto) 2.3, Baso % (Auto) 1.0, Absolute Neuts (auto) 1.7 L, Absolute Lymphs (auto) 1.49, Nucleated RBC % 0, Sodium 142, Potassium 3.5, Chloride 107, Carbon Dioxide 26.0, Anion Gap 9, BUN 6 L, C reatinine 0.61 L, Estim Creat Clear Calc 132.38, Est GFR (MDRD) Af Amer 176, Est GFR (MDRD) Non-Af 146, BUN/Creatinine Ratio 9.8 L, Glucose 103, Calcium 8.5, Total Bilirubin 0.20, Direct Bilirubin 0.14, AST 82 H, ALT 86 H, Alkaline Phosphatase 69, Total Protein 7.8, Albumin 3.9, Globulin 3.9, Ethyl Alcohol 411.0 H* 12/15/23 16:37: Ur Drug Screen Comment Assessment & Plan Assessment/Plan (1) Alcohol abuse: PLAN: Plan #Alcohol use disorder - We will begin CIWA every 4 for 24 hours, then every 6 for 24 hours, then every 12 until discharge -Will begin phenobarbital taper -Gabapentin 300 mg every 8 as needed -Will start Bentyl and hydroxyzine as needed as well as loperamide as needed -Trazodone 100 mg p.o. nightly as needed sleep -Begin thiamine and folic acid supplementation -Zofran as needed for nausea -Case management consult to assist with discharge planning -EtOH 411 -UDS pending #Tobacco use -Advise cessation -Nicotine replacement available if desired # Elevated liver function tests -Suspect secondary to alcohol use or fatty liver -No abdominal pain -Bili within normal limits -Repeat in a.m. #DVT ppx: low risk, ambulatory Lindy Gaona MD Time spent in the patient's overall evaluation,decision-making process, review of diagnostic data, adjustment of management, discussion with other providers, nursing nursing and ancillary staff involved in patient's care documentation, 56 Minutes Charges/Coding Visit Charges Inpatient E&M: 32922 Init Hosp L2
[2023-12-15 18:49] LABS: Amphetamine Urine VISTA NEGATIVE (<1000 ng/mL); Barbiturate Urine VISTA NEGATIVE (< 200 ng/mL); Benzodiazepine Urine VISTA NEGATIVE (< 200 ng/mL); Cocaine Urine VISTA NEGATIVE (< 300 ng/mL); Ecstacy Urine VISTA NEGATIVE (< 500 ng/mL); Methadone Urine VISTA NEGATIVE (< 300 ng/mL); PCP Urine VISTA NEGATIVE (< 25 ng/mL); THC Urine VISTA POSITIVE (< 50 ng/mL); Vista UDS pH Range 6
[2023-12-15] MEDS: 0.9% Normal Saline (1000mL) 1,000 ML 100 ML IV (20:22)
[2023-12-15] MEDS: traZODone 100 MG Tablet PO (20:23)
[2023-12-15] MEDS: hydrOXYzine PAM 25 MG Capsule 50 MG PO (20:23)
[2023-12-15] MEDS: Phenobarbital 32.4 MG Tablet PO (20:23)
[2023-12-15 20:39] LABS: Prothrombin Time (Protime)PT. 12.8 SECONDS (11.7-14.9)
[2023-12-16] MEDS: Phenobarbital 32.4 MG Tablet PO ×6 (00:45→20:50)
[2023-12-16 02:00] VITALS: BP 124/80; PULSE 79; RESP 15; TEMP 36.8; O2SAT 99
[2023-12-16 04:09] LABS: Absolute Neutrophil Count 1.7 X10^3/uL (2.0-7.7); Basophil# 0.02 X10^3/uL; Basophil% 0.5 % (0-1); Eosinophil# 0.12 X10^3/uL; Eosinophils% 3.1 % (0-5); Hematocrit 36.8 % (40-54); Hemoglobin 12.4 g/dL (13.0-16.5); Lymphocyte % 38.8 % (19-41); Mean Corp Hgb Conc 33.7 g/dL (32-36); Mean Corpuscular Hgb 34.3 pg (27.0-32.0); Mean Corpuscular Volume 101.7 fL (80-94); Monocyte# 0.53 X10^3/uL; Monocyte% 13.7 % (0-10); NRBC Flagged by Analyzer 0 % (0-5); Neutrophil # 1.69 X10^3/uL (2.7-7.7); Neutrophil % 43.6 % (47-70); Platelet Count 130 K/mm3 (150-450); RBC Distribution Width CV 12.9 % (11.6-14.6); RBC Distribution Width SD 48.3 fl (35.1-43.9); Red Blood Count 3.62 M/mm3 (4.6-6.2); White Blood Count 3.9 K/mm3 (4.4-11.0)
[2023-12-16 04:34] LABS: AST(SGOT) 58 U/L (15-37); Alanine Aminotransfer ALT/SGPT 70 U/L (16-61); Albumin, Serum 3.3 g/dL (3.2-5.0); Alkaline Phosphatase 57 U/L (45-117); Anion Gap 5 (5-15); BUN 7 mg/dL (7-18); BUN/Creat Ratio 11.8 RATIO (10-20); Chloride 107 mmol/L (98-107); Creatinine, Serum 0.59 mg/dL (0.70-1.30); EST Glomerular Filtration Rate 151 mL/min (>60); Est Glom Filt Rate - Afr Amer 182 mL/min (>60); Estimated Creatinine Clearance 135.23 ml/min; Globulin 3.4 g/dL (2.2-4.2); Glucose 85 mg/dL (74-106); Potassium 3.4 mmol/L (3.5-5.1); Protein, Total 6.7 g/dL (6.4-8.2); Sodium Level 137 mmol/L (136-145)
--- NOTE | 2023-12-16 07:21 | PCM.PN.HOSP ---
Reason for Visit Reason for Visit: Alcohol abuse with desire to detox Subjective Subjective Patient has no significant complaints at this time. He did state he had some nausea and diarrhea earlier. States that is resolved at this time. I did inform him that there are medications available for symptoms if needed all he needs to do is asked the nurse and he voiced appreciation. Last drink was about 24 hours ago. We did discuss that his most dangerous withdrawal. Is probably can to be between 48 and 72 hours. Objective Data Objective Data Vital Signs: Vital Signs Temp Pulse Resp BP Pulse Ox O2 Del Method 98.2 F 79 15 124/80 H 99 Room Air 12/16/23 02:00 12/16/23 02:00 12/16/23 02:00 12/16/23 02:00 12/16/23 02:00 12/16/23 04:00 Oxygen Delivery Method Room Air Weight: 67.585 kg Body Mass Index (BMI) 22.6 Intake & Output: Intake and Output for Last 24 Hours 12/14/23 12/15/23 12/16/23 23:59 23:59 23:59 Intake Total 105.2 / 655.2 194.33 / 1943.33 Balance 105.2 / 655.2 1942.33 / 1943.33 Lab / Micro Data 12/16/23 03:57 12/16/23 03:57 Labs: Laboratory Results - last 24 hr 12/15/23 16:00: WBC 3.9 L, RBC 4.24 L, Hgb 14.8, Hct 42.7, MCV 100.7 H, MCH 34.9 H, MCHC 34.7, RDW Std Deviation 48.8 H, RDW Coeff of Bashir 13.1, Plt Count 160, MPV 10.4, Immature Gran % (Auto) 0.000, Neut % (Auto) 44.0 L, Lymph % (Auto) 38.1, [place] % (Auto) 14.6 H, Eos % (Auto) 2.3, Baso % (Auto) 1.0, Absolute Neuts (auto) 1.7 L, Absolute Lymphs (auto) 1.49, Nucleated RBC % 0, PT 12.8, INR 1.0, Sodium 142, Potassium 3.5, Chloride 107, Carbon Dioxide 26.0, Anion Gap 9, BUN 6 L, Creatinine 0.61 L, Estim Creat Clear Calc 132.38, Est GFR (MDRD) Af Amer 176, Est GFR (MDRD) Non-Af 146, BUN/Creatinine Ratio 9.8 L, Glucose 103, Calcium 8.5, Total Bilirubin 0.20, Direct Bilirubin 0.14, AST 82 H, ALT 86 H, Alkaline Phosphatase 69, Total Protein 7.8, Albumin 3.9, Globulin 3.9, Ethyl Alcohol 411.0 H* 12/15/23 16:37: Urine Opiates Screen NEGATIVE, Urine Methadone Screen NEGATIVE, Ur Barbiturates Screen NEGATIVE, Ur Phencyclidine Scrn NEGATIVE, Ur Amphetamines Screen NEGATIVE, MDMA (Ecstasy) Screen NEGATIVE, U Benzodiazepines Scrn NEGATIVE, Urine Cocaine Screen NEGATIVE, U Cannabinoids Screen POSITIVE H, Ur Drug Screen Comment 12/16/23 03:57: WBC 3.9 L, RBC 3.62 L, Hgb 12.4 L, Hct 36.8 L, MCV 101.7 H, MCH 34.3 H, MCHC 33.7, RDW Std Deviation 48.3 H, RDW Coeff of Bashir 12.9, Plt Count 130 L, MPV 10.0, Immature Gran % (Auto) 0.300, Neut % (Auto) 43.6 L, Lymph % (Auto) 38.8, [place] % (Auto) 13.7 H, Eos % (Auto) 3.1, Baso % (Auto) 0.5, Absolute Neuts (auto) 1.7 L, Absolute Lymphs (auto) 1.50, Nucleated RBC % 0, Sodium 137, Potassium 3.4 L, Chloride 107, Carbon Dioxide 25.0, Anion Gap 5, BUN 7, Creatinine 0.59 L, Estim Creat Clear Calc 135.23, Est GFR (MDRD) Af Amer 182, Est GFR (MDRD) Non-Af 151, BUN/Creatinine Ratio 11.8, Glucose 85, Calcium 8.0 L, Magnesium 2.0, Total Bilirubin 0.50, AST 58 H, ALT 70 H, Alkaline Phosphatase 57, Total Protein 6.7, Albumin 3.3, Globulin 3.4, Albumin/Globulin Ratio 1.0 Physical Exam Const alert, oriented x3, no apparent distress and average body habitus Constitutional Narrative: Middle-aged, white male, lying in bed, currently appears comfortable, does not appear toxic, no significant tremor noted, very pleasant, appears slightly older than stated age HEENT head/scalp atraumatic and moist oral mucous membranes Head and Scalp: normocephalic Resp normal respiratory effort, no retractions, no use of accessory muscles and clear to auscultation bilaterally Auscultation: Negative for rales, rhonchi or wheezes Cardio regular rate, regular rhythm, S1 normal heart sound, S2 normal heart sound, no murmurs, no rub, no gallops and no clicks GI normal to inspection, nondistended, normoactive bowel sounds, soft to palpation and non-tender Extremity no clubbing, cyanosis or edema Neuro oriented x3 and moves all extremities Speech: speech normal Psych affect normal Psych Narrative: Pleasant, makes good eye contact, interacts appropriately Assessment & Plan Assessment/Plan (1) Alcohol abuse: (2) Hypokalemia: PLAN: Plan Alcohol abuse with pending alcohol withdrawal -Patient drinks 12 to 18 cans of beer day plus a pint of whiskey -CIWA on arrival was 9 and his blood alcohol level was greater than 400 -Current CIWA is 2 -1 for very mild headache and 1 for mild anxiety -Continue CIWA with as needed Ativan -Continue phenobarbital taper -Continue thiamine and folate but will increase thiamine to 200 twice daily -180 consultation is pending -Case management/social work consultation for assistance with discharge planning Transaminitis -Highly suspect related to alcoholic hepatitis -Are trending down -Elevation was not severe -Continue to monitor Mild pancytopenia -Highly suspect related to marrow toxicity with chronic alcohol abuse -Counts should recover with ongoing cessation and marrow recovery -Would recommend outpatient follow-up labs once sober to ensure normalization Hypokalemia -Potassium is 3.4 -Replete with 40 mEq Tobacco abuse -Nicotine patch replacement available -Recommend cessation Marijuana use -Recommend cessation DVT prophylaxis -Low risk -Early ambulation protocol recommended CODE STATUS -Full code Charges/Coding Visit Charges Inpatient E&M: 15621 Subs Hosp L2
[2023-12-16 08:17] VITALS: BP 152/103; PULSE 96; RESP 18; TEMP 36.6; O2SAT 98
[2023-12-16] MEDS: Folic Acid 1 MG Tablet PO (08:32)
--- NOTE | 2023-12-16 09:57 | NURSING ---
Call returned to NATHALIA Quiñones for update on pt status and emotional well-being.
[2023-12-16] MEDS: Thiamine Hydrochloride 100 MG Tablet 200 MG PO ×2 (10:48→16:28)
[2023-12-16] MEDS: FLU VACC 2024-25(6MOS UP)/PF 45 MCG/0.5 ML SYRINGE IM (12:30)
[2023-12-16 14:15] VITALS: BP 132/86; PULSE 85; RESP 16; TEMP 36.8; O2SAT 100
[2023-12-16] MEDS: Ensure Plus High Protein 120 ML LIQUID PO ×2 (14:22→16:28)
[2023-12-16 15:50] VITALS: PULSE 78
--- NOTE | 2023-12-16 17:59 | NURSING ---
Call received from NATHALIA Quiñones. Update on pt status/condition provided.
[2023-12-16 18:00] VITALS: BP 140/84; PULSE 82; RESP 18; TEMP 36.7; O2SAT 99
[2023-12-16] MEDS: hydrOXYzine PAM 25 MG Capsule 50 MG PO (20:51)
[2023-12-16 22:00] VITALS: BP 155/105; PULSE 86; RESP 18; TEMP 36.9; O2SAT 99
[2023-12-17] MEDS: Phenobarbital 32.4 MG Tablet PO ×6 (00:19→21:08)
[2023-12-17 05:19] VITALS: BP 155/108; PULSE 76; RESP 18; TEMP 36.9; O2SAT 99
[2023-12-17 06:44] LABS: Hematocrit 40.1 % (40-54); Mean Corp Hgb Conc 34.9 g/dL (32-36); Mean Corpuscular Volume 100.3 fL (80-94); Mean Platelet Vol. 10.9 fl (6.2-12.0); Platelet Count 164 K/mm3 (150-450); RBC Distribution Width CV 12.4 % (11.6-14.6); White Blood Count 4.7 K/mm3 (4.4-11.0)
[2023-12-17 07:16] LABS: Anion Gap 4 (5-15); BUN 7 mg/dL (7-18); BUN/Creat Ratio 10.9 RATIO (10-20); Calcium,Total 8.8 mg/dL (8.5-10.1); Chloride 104 mmol/L (98-107); Creatinine, Serum 0.64 mg/dL (0.70-1.30); EST Glomerular Filtration Rate 137 mL/min (>60); Est Glom Filt Rate - Afr Amer 166 mL/min (>60); Estimated Creatinine Clearance 124.67 ml/min; Glucose 91 mg/dL (74-106); Phosphorus 3.1 mg/dL (2.5-4.9); Potassium 3.3 mmol/L (3.5-5.1); Sodium Level 136 mmol/L (136-145)
[2023-12-17] MEDS: Thiamine Hydrochloride 100 MG Tablet 200 MG PO ×2 (08:50→17:09)
[2023-12-17] MEDS: Folic Acid 1 MG Tablet PO (08:50)
[2023-12-17] MEDS: Potassium Chloride Oral Tablet 20 MEQ 60 MEQ PO (08:51)
[2023-12-17] MEDS: Ensure Plus High Protein 120 ML LIQUID PO ×4 (09:41→21:09)
[2023-12-17 09:44] VITALS: BP 133/98; PULSE 78; RESP 16; TEMP 36.4; O2SAT 99
[2023-12-17 09:47] VITALS: BP 133/98; PULSE 74; RESP 16; TEMP 36.4; O2SAT 99
--- NOTE | 2023-12-17 10:35 | PN.HOSP_ITS ---
Reason for Visit Reason for Visit: Alcohol detox Subjective Subjective Patient states he is feeling a bit better than yesterday however he states he still is not feeling great. He stated he starting to wonder if he over felt good again. I did ensure him that he would eventually feel much better while being sober but currently he is in the most significant part of his withdraw as he is now just 48 hours out from his last drink. He denies any significant nausea or abdominal pain and states he is hungry and waiting for his breakfast. Objective Data Objective Data Vital Signs: Vital Signs Temp Pulse Resp BP Pulse Ox O2 Del Method 97.5 F L 74 16 133/98 H 99 Room Air 12/17/23 09:47 12/17/23 09:47 12/17/23 09:47 12/17/23 09:47 12/17/23 09:47 12/17/23 09:47 Oxygen Delivery Method Room Air Weight: 67.585 kg Body Mass Index (BMI) 22.6 Intake & Output: Intake and Output for Last 24 Hours 12/15/23 12/16/23 12/17/23 23:59 23:59 23:59 Intake Total 105.2 / 655.2 2903.33 / 2903.33 Balance 105.2 / 655.2 2903.33 / 2903.33 Lab / Micro Data 12/17/23 05:51 12/17/23 05:51 Labs: Laboratory Results - last 24 hr 12/17/23 05:51: WBC 4.7, RBC 4.00 L, Hgb 14.0, Hct 40.1, MCV 100.3 H, MCH 35.0 H , MCHC 34.9, RDW Std Deviation 46.0 H, RDW Coeff of Bashir 12.4, Plt Count 164, MPV 10.9, Sodium 136, Potassium 3.3 L, Chloride 104, Carbon Dioxide 27.0, Anion Gap 4 L, BUN 7, Creatinine 0.64 L, Estim Creat Clear Calc 124.67, Est GFR (MDRD) Af Amer 166, Est GFR (MDRD) Non-Af 137, BUN/Creatinine Ratio 10.9, Glucose 91, Calcium 8.8, Phosphorus 3.1 Physical Exam Const alert, oriented x3, no apparent distress, average body habitus and well nourished; Negative for healthy appearing Constitutional Narrative: Middle-aged, white male, lying in bed sleeping but arouses easily, appears comfortable, nontoxic HEENT head/scalp atraumatic and moist oral mucous membranes HEENT Narrative: Mallampati 2-3, no thrush Head and Scalp: normocephalic Resp normal respiratory effort, no retractions, no use of accessory muscles and clear to auscultation bilaterally Auscultation: Negative for rales, rhonchi or wheezes Cardio regular rate, regular rhythm, S1 normal heart sound, S2 normal heart sound, no murmurs, no rub, no gallops and no clicks GI normal to inspection, nondistended, normoactive bowel sounds, soft to palpation and non-tender Extremity no clubbing, cyanosis or edema Neuro oriented x3 and moves all extremities Neuro Narrative: Patient does have some fine tremor on exam Speech: speech normal Psych affect normal Psych Narrative: Pleasant, makes good eye contact, interacts appropriately Assessment & Plan Assessment/Plan (1) Alcohol abuse: (2) Hypokalemia: PLAN: Plan Alcohol abuse with pending alcohol withdrawal -Patient drinks 12 to 18 cans of beer day plus a pint of whiskey -CIWA on arrival was 9 and his blood alcohol level was greater than 400 -CIWA remains fairly stable at 2 tremor - for tremor and paroxysmal sweats -Continue CIWA with as needed Ativan -Continue phenobarbital taper -Continue thiamine at 200 mg twice daily -Continue folate -180 consultation is pending -Case management/social work consultation for assistance with discharge planning Transaminitis -Highly suspect related to alcoholic hepatitis -Are trending down -Elevation was not severe -Continue to monitor Mild pancytopenia -Resolved -Counts of all cell lines have normalized Hypokalemia -Potassium remains low -Replace again today with 40 mill equivalents p.o. potassium -Magnesium was normal yesterday -Recheck lab in a.m. Tobacco abuse -Nicotine patch replacement available -Recommend cessation Marijuana use -Recommend cessation DVT prophylaxis -Low risk -Early ambulation protocol recommended CODE STATUS -Full code Charges/Coding Visit Charges Inpatient E&M: 26211 Subs Hosp L2
[2023-12-17 15:20] VITALS: BP 145/103; PULSE 84; RESP 16; TEMP 36.3; O2SAT 100
[2023-12-17 21:02] VITALS: BP 149/100; PULSE 68; RESP 16; TEMP 36.5; O2SAT 100
[2023-12-17] MEDS: hydrOXYzine PAM 25 MG Capsule 50 MG PO (21:08)
[2023-12-17] MEDS: traZODone 100 MG Tablet PO (21:08)
[2023-12-18 01:11] VITALS: BP 129/91; PULSE 66; RESP 16; TEMP 36.5; O2SAT 100
[2023-12-18] MEDS: Phenobarbital 32.4 MG Tablet PO ×5 (01:11→22:02)
[2023-12-18 05:27] VITALS: BP 129/85; PULSE 68; RESP 16; TEMP 36.6; O2SAT 98
[2023-12-18 07:08] LABS: Anion Gap 3 (5-15); BUN 7 mg/dL (7-18); BUN/Creat Ratio 11.1 RATIO (10-20); Calcium,Total 8.8 mg/dL (8.5-10.1); Chloride 105 mmol/L (98-107); Creatinine, Serum 0.63 mg/dL (0.70-1.30); EST Glomerular Filtration Rate 141 mL/min (>60); Est Glom Filt Rate - Afr Amer 170 mL/min (>60); Estimated Creatinine Clearance 126.65 ml/min; Glucose 94 mg/dL (74-106); Potassium 4.2 mmol/L (3.5-5.1); Sodium Level 134 mmol/L (136-145)
[2023-12-18 08:41] VITALS: BP 137/100; PULSE 75; RESP 18; TEMP 36.5; O2SAT 100
[2023-12-18] MEDS: Folic Acid 1 MG Tablet PO (08:48)
[2023-12-18] MEDS: Thiamine Hydrochloride 100 MG Tablet 200 MG PO ×2 (08:48→17:01)
[2023-12-18] MEDS: Ensure Plus High Protein 120 ML LIQUID PO ×4 (08:48→22:02)
[2023-12-18] MEDS: hydrOXYzine PAM 25 MG Capsule 50 MG PO ×3 (09:37→22:08)
[2023-12-18 11:00] VITALS: PULSE 75
[2023-12-18 15:00] VITALS: BP 135/83; PULSE 82; RESP 18; TEMP 36.9; O2SAT 100
--- NOTE | 2023-12-18 15:40 | CHAPLAIN ---
Type of Pastoral Visit _x__ Initial Visit ___ Follow-up Visit ___ On-call Visit ___ General Patient Visit ___ Spiritual Assessment ___ Family Conference ___ Bereavement ___ Rapid Response ___ Code Blue ___ Other (describe below) Pastoral Care Referral From _x__ Patient ___ Family ___ Nurse ___ Physician ___ Dot Compliance Specialist ___ Shirt Folder ___ Other (describe below) Sacrament/Intervention _x__ Active listening ___ Anointing ___ Druze ___ Bereavement ___ Communion _x__ Irma exploration ___ _x__ Life review _x__ Prayer ___ Reconciliation ___ Sacrament of Sick _x__ Supportive presence ___ Wedding ___ Other (describe below) Pastoral Comments patient is welcoming and readily admits that I have a drinking problem and I need God and being in episcopalian to help me; pt states that he began drinking in middle school and has ever since except for a couple short times after a detox and rehab; pt says I knew I couldn't do it by myself and that I needed help with I think I've come to the bottom, after losing my job and going through my money and nursing home funds; pt admits to feelings of anxiety that accompany him in life; pt has a mother that wants him to get well; pt does attend a episcopalian with his mother occasionally because that pleases her and I like it; pt is tearful at times in the encounter; pt is open with answers and seeks to have spiritual care support and has a willingness to hear about hope and getting to the right place in life; prayer and presence given
--- NOTE | 2023-12-18 18:17 | PN.HOSP_ITS ---
Reason for Visit Reason for Visit: Diagnoses Hypokalemia (12/15/23) Alcohol abuse, uncomplicated (12/15/23) Subjective Subjective Patient was seen and examined today, patient states he is unemployed at this time and is worried about his apartment rent. Patient denies any significant withdrawal symptoms at this time, his CIWA scale today was 5. Objective Data Objective Data Vital Signs: Vital Signs Temp Pulse Resp BP Pulse Ox O2 Del Method 98.5 F 82 18 135/83 H 100 Room Air 12/18/23 15:00 12/18/23 15:00 12/18/23 15:00 12/18/23 15:00 12/18/23 15:00 12/18/23 15:00 Oxygen Delivery Method Room Air Weight: 67.585 kg Body Mass Index (BMI) 22.6 Intake & Output: Intake and Output for Last 24 Hours 12/16/23 12/17/23 12/18/23 23:59 23:59 23:59 Intake Total 2903.33 / 2903.33 880 / 880 Balance 2903.33 / 2903.33 880 / 880 Lab / Micro Data 12/17/23 05:51 12/18/23 05:39 Labs: Laboratory Results - last 24 hr 12/18/23 05:39: Sodium 134 L, Potassium 4.2, Chloride 105, Carbon Dioxide 26.0, Anion Gap 3 L, BUN 7, Creatinine 0.63 L, Estim Creat Clear Calc 126.65, Est GFR (MDRD) Af Amer 170, Est GFR (MDRD) Non-Af 141, BUN/Creatinine Ratio 11.1, Glucose 94, Calcium 8.8 Physical Exam Const alert, oriented x3, no apparent distress and average body habitus General Appearance: cooperative, well kempt and well developed Orientation / Consciousness: awake, oriented to person, oriented to place and oriented to time HEENT normocephalic, head/scalp atraumatic and moist oral mucous membranes Eyes PERRL, EOMs intact bilaterally and conjunctivae normal Neck supple, no JVD, thyroid normal and no carotid bruits General: trachea midline Resp normal respiratory effort, no retractions, no use of accessory muscles and clear to auscultation bilaterally Auscultation: Negative for rales, rhonchi or wheezes Cardio regular rate, regular rhythm, S1 normal heart sound, S2 normal heart sound, no murmurs, no rub and no gallops GI normal to inspection, nondistended, normoactive bowel sounds, soft to palpation, non-tender and non-distended Extremity no clubbing, cyanosis or edema Skin no rashes or lesions noted General Skin Exam: no breakdown Neuro oriented x3, CN's II-XII intact bilaterally, no focal motor deficits and no sensory deficits noted Sensorium / Orientation: awake and alert Speech: speech normal Psych affect normal Assessment & Plan Assessment/Plan (1) Alcohol abuse: PLAN: Plan 1. Acute alcohol substance disorder with withdrawal syndrome-patient will remain on phenobarbital at this time, I do not see where addiction social services assistant has seen the patient yet, hopefully they will see the patient tomorrow, he told me today that he intends on doing an outpatient program rather than an inpatient program. #2 hypokalemia-resolved at this time Total clinical time spent by myself addressing the patient's medical issues, reviewing all of his data, and collaborating with patient's care team: 25 minutes Charges/Coding Visit Charges Inpatient E&M: 32817 Subs Hosp L1
[2023-12-18 22:04] VITALS: BP 135/98; PULSE 69; RESP 16; TEMP 36.6; O2SAT 100
[2023-12-19] MEDS: hydrOXYzine PAM 25 MG Capsule 50 MG PO ×2 (04:39→10:07)
[2023-12-19] MEDS: Phenobarbital 32.4 MG Tablet PO ×2 (04:39→10:07)
[2023-12-19 07:39] VITALS: BP 123/107; PULSE 63; RESP 18; TEMP 35.9; O2SAT 100
[2023-12-19] MEDS: Gabapentin 300 MG Capsule PO (07:48)
[2023-12-19] MEDS: Folic Acid 1 MG Tablet PO (07:48)
[2023-12-19] MEDS: Ensure Plus High Protein 120 ML LIQUID PO (07:48)
[2023-12-19] MEDS: Thiamine Hydrochloride 100 MG Tablet 200 MG PO (07:48)
[2023-12-19 08:15] VITALS: PULSE 62
--- NOTE | 2023-12-19 09:32 | DCINST_ITS ---
Discharge Instructions Diet Discharge Diet: No restrictions Activity Discharge Activity: Return to Normal Activity Weight Bearing Status: Full weight bearing Follow Up Care Test Results: Test results from this visit will be discussed in further detail at your follow- up appointment, if applicable. Discharge Plan Admission Admit Date/Time: 12/15/23 18:32 Primary Reason for Your Visit: alcohol detox Attending Provider: Janak Adler Primary Care Provider: Care Physician,No Primary Consulting Providers: Lindy Gaona; Jenna Lundy Instructions Additional Instructions / Restrictions: follow up with outpatient alcohol detox program as directed Discharge Orders/Prescriptions Prescriptions: New nicotine 21 mg/24 hr Patch 24 Hour 21 mg transdermal DAILY Qty: 30 0RF Referrals / Follow Up: Care Physician,No Primary [Primary Care Provider] - Disposition Disposition (needs filled in before D/C Order can be placed): Home, Self Care
--- NOTE | 2023-12-19 09:35 | DS.PCM_ITS ---
Providers Date of Admission: 12/15/23 Date of Discharge: 12/19/23 Primary Care Physician: No Primary Care Phys Reason For Visit: ETOH DETOX Diagnosis Discharge Diagnosis (1) Alcohol abuse: Status: Acute Code(s): F10.10 - Alcohol abuse, uncomplicated Plan 1. Acute alcohol substance disorder with withdrawal syndrome-patient will remain on phenobarbital at this time, I do not see where addiction social contact worker has seen the patient yet, hopefully they will see the patient tomorrow, he told me today that he intends on doing an outpatient program rather than an inpatient program. #2 hypokalemia-resolved at this time Total clinical time spent by myself addressing the patient's medical issues, reviewing all of his data, and collaborating with patient's care team: 25 minutes Medications at Discharge Home Medications nicotine 21 mg/24 hr daily transdermal patch 21 mg transdermal DAILY #30 ea 12/19/23 Hospital Course Operations None Procedures None Summary of Care Provided Minutes Spent on Discharge: 30 Hospital Course: This 53-year-old white male was seen in the emergency room at [facility] requesting services for alcohol detox. Patient was admitted to PCU, subsequent labs showed the patient have a low potassium and this was supplemented. Patient had no severe withdrawal symptoms during his hospital stay, he was seen by addiction social contact worker and information was given to the patient regarding outpatient resources for continued detox. On 12/19/2023, patient was seen and examined: On examination he appeared in good health and spirits. Vital signs as documented. Skin warm and dry and without overt rashes. Neck without JVD, neck was supple, trachea midline, thyroid was normal. Lungs clear bilaterally, normal air movement was noted. Heart exam notable for regular rhythm, normal sounds and absence of murmurs, rubs or gallops. Abdomen unremarkable and without evidence of organomegaly, masses, or abdominal aortic enlargement. Bowel sounds are present, abdomen is not distended. Extremities nonedematous, no cyanosis was noted, no clubbing was noted. Neuro: Cranial nerves II through XII are grossly intact, no focal motor deficits were noted, sensation to light touch and pinprick intact, motor exam 5/5 throughout. Psych: Patient is alert and oriented x3, he does not appear anxious or depressed, he does not appear agitated. Patient was discharged home in stable condition on 12/19/2023. Weight / BMI Weight Weight: 67.585 kg Body Mass Index (BMI) 22.6 ABG / Lab / Microbiology Data 12/17/23 05:51 12/18/23 05:39 D/C Instructions Discharge Diet: No restrictions Weight Bearing Status: Full weight bearing Meaningful Use Info Meaningful Use Meaningful Use Diagnoses (Choose all that apply): None applicable Ischemic Stroke Statin Dosing Therapy Reference: STATIN DOSE THERAPY REFERENCE: * Patients > 75 years receive moderate or high dose statin therapy. * Patients 75 years or YOUNGER should receive HIGH intensity statin dose unless contraindicated. You will be required to document reason for non-treatment if statin daily dose does not meet guidelines. HIGH DOSE STATIN THERAPY DAILY Atorvastatin > than or = to 40 mg Rosuvastatin > than or = to 20 mg Amlodipine + Atorvastatin > than or = to 2.5/40 mg Ezetimibe + Simvastatin 10/80 mg Simvastatin 80mg Discharge Plan Admission Admit Date/Time: 12/15/23 18:32 Primary Reason for Your Visit: alcohol detox Attending Provider: Janak Adler Primary Care Provider: Care Physician,No Primary Consulting Providers: Lindy Gaona; Jenna Lundy Instructions Additional Instructions / Restrictions: follow up with outpatient alcohol detox program as directed Discharge Orders/Prescriptions Prescriptions: New nicotine 21 mg/24 hr Patch 24 Hour 21 mg transdermal DAILY Qty: 30 0RF Referrals / Follow Up: Care Physician,No Primary [Primary Care Provider] - Disposition Disposition (needs filled in before D/C Order can be placed): Home, Self Care Charges/Coding Visit Charges Inpatient E&M: 44104 Disch Hosp
[2023-12-19 10:07] VITALS: BP 115/67; PULSE 75
--- NOTE | 2023-12-19 10:15 | ADDICTION ---
Met with patient to complete RAMP assessments. Pt reports this is the first time coming to this detox. He reports that he tried in [place] and it was uncomfortable. Pt reports that he knows that alcohol is effecting him medically and he reports he is ready to stop. Clinician gave him a list of resources in [facility]. Pt did not want clinician to set him up with an appointment.
== END 2023-12-19 12:30 | disposition home or self-care (01) | DRG 775 ==
LOC: ED 17:07 → PCU 18:48
PROVIDERS: Internal Medicine; Admitting Provider Internal Medicine; Emergency Provider Emergency Medicine; Visit Provider Internal Medicine
DX: F10.239 Alcohol dependence with withdrawal, unspecified (principal); D61.818 Other pancytopenia; K70.10 Alcoholic hepatitis without ascites; D53.9 Nutritional anemia, unspecified; E87.6 Hypokalemia; K76.0 Fatty (change of) liver, not elsewhere classified; F12.90 Cannabis use, unspecified, uncomplicated; F17.210 Nicotine dependence, cigarettes, uncomplicated; Y90.8 Blood alcohol level of 240 mg/100 ml or more
CPT/HCPCS: 36415; 80048; 80053; 80076; 80307; 82077; 83735; 84100; 85025; 85027; 85610; 90656; 99283; 99406; A4216